=== PATIENT | male | born 1935 | race Caucasian/White ===

== ENCOUNTER 2018-09-17 15:16 | Observation (INO) | payer MEDICARE ==
[~2018-09-17] VITALS: Ht 182.9 cm; Wt 82.2 kg
[~2018-09-17 15:16] MED LIST: CARVEDILOL3.125 MG PO; LOVASTATIN10 MG PO; PLAVIX75 MG PO
[2018-09-17 17:11] LABS: BASOPHILS % 0.3 % (0.0-1.0); EOSINOPHILS # (AUTO) 0.7 (0.0-0.4); EOSINOPHILS % 7.5 % (0.0-6.0); HEMATOCRIT 40.5 % (38.2-49.6); HEMOGLOBIN 13.4 g/dL (14.0-18.0); LYMPHOCYTES # (AUTO) 2.7 (1.0-3.2); LYMPHOCYTES % 30.7 % (18.0-39.1); MEAN CORPUSCULAR HEMOGLOBIN 31.5 pg (28-32); MEAN CORPUSCULAR HGB CONC 33.1 g/dL (31-35); MEAN CORPUSCULAR VOLUME 95.1 fL (81-99); MONOCYTES # (AUTO) 0.9 (0.2-0.8); MONOCYTES % 10.2 % (4.4-11.3); NEUTROPHILS # (AUTO) 4.5 (2.1-6.9); NEUTROPHILS % 50.6 % (38.7-80.0); PLATELET COUNT 207 x10e3/uL (140-360); RED BLOOD COUNT 4.26 x10e6/uL (4.3-5.7); RED CELL DISTRIBUTION WIDTH 13.9 % (11.7-14.4)
[2018-09-17 17:23] LABS: ALBUMIN 3.8 g/dL (3.5-5.0); ALBUMIN/GLOBULIN RATIO 1.1 (0.8-2.0); ANION GAP 13.8 mmol/L (8-16); CALCIUM 9.9 mg/dL (8.4-10.2); CREATININE, SERUM 2.02 mg/dL (0.72-1.25); POTASSIUM 5.8 mmol/L (3.5-5.1)
[2018-09-17 17:40] LABS: CREATINE KINASE MB 2.1 ng/mL (0-5.0)
[2018-09-17] MEDS ORDERED: DEXTROSE 50% SYRINGE 50 ML IV STA ×2 (17:41→23:15)
[2018-09-17] MEDS ORDERED: INSULIN REGULAR, HUMAN 100 UNIT/1 ML 3ML VIAL IV ONE (17:45)
[2018-09-17] MEDS ORDERED: SOD POLYSTYRENE SULFONATE SUSP 15 GM/60 ML BTL PO ONE (17:45)
[2018-09-17] MEDS ORDERED: CALCIUM GLUCONATE 10% INJ 4.65 MEQ in SODIUM CHLORIDE 0.9% 50ML 50 ML IV ONE (17:45)
[2018-09-17] MEDS ORDERED: SODIUM CHLORIDE 0.9% 1000ML 1,000 ML IV STA (20:04)
[2018-09-17] MEDS ORDERED: ONDANSETRON HCL INJ 2MG/ML 2ML 2 MG/ML VIAL IV ONE (20:04)
[2018-09-17] MEDS ORDERED: KETOROLAC TROMETHAMINE 30 MG/ML VIAL IV ONE (20:04)
[2018-09-17 20:31] LABS: ALBUMIN 3.6 g/dL (3.5-5.0); ALBUMIN/GLOBULIN RATIO 1.1 (0.8-2.0); CALCIUM 10.2 mg/dL (8.4-10.2); CREATININE, SERUM 1.95 mg/dL (0.72-1.25)
[2018-09-17] MEDS ORDERED: ONDANSETRON HCL INJ 2MG/ML 2ML 2 MG/ML VIAL IV PRN (21:00)
[2018-09-17] MEDS ORDERED: DEXTROSE 5%/0.45% SOD CHL 1,000 ML IV ONE ×3 (21:00→23:45)
[2018-09-17 22:46] VITALS: BP 132/74
[2018-09-17] MEDS ORDERED: LOVASTATIN40 MG (23:07)
[2018-09-17] MEDS ORDERED: LISINOPRIL40 MG (23:07)
[2018-09-18] VITALS (8 sets, daily range): BP systolic 112–148; BP diastolic 68–86
--- NOTE | 2018-09-18 01:49 | NUR ---
PT IS TRANSFERRED FROM ER.PT IS AOX3 .RESPIRATIONS ARE EVEN AND UNLABORED .SKIN WAEM AND DRY PT HAS IV AT RT AC NS D51/NS AT 75 ML/HR IS RUNNING .DENIES PAIN FAMILY WAS AT BEDSIDE .TELE #9 SHOWS AR .CALL LIGHT WITH IN REACH .CONTINUE TO MONITOR
[2018-09-18 05:59] LABS: BASOPHILS % 0.2 % (0.0-1.0); EOSINOPHILS % 5.6 % (0.0-6.0); HEMATOCRIT 37.8 % (38.2-49.6); HEMOGLOBIN 12.8 g/dL (14.0-18.0); LYMPHOCYTES % 17.7 % (18.0-39.1); MEAN CORPUSCULAR HEMOGLOBIN 31.4 pg (28-32); MEAN CORPUSCULAR HGB CONC 33.9 g/dL (31-35); MEAN CORPUSCULAR VOLUME 92.6 fL (81-99); NEUTROPHILS # (AUTO) 5.6 (2.1-6.9); NEUTROPHILS % 63.9 % (38.7-80.0); PLATELET COUNT 171 x10e3/uL (140-360); RED BLOOD COUNT 4.08 x10e6/uL (4.3-5.7); RED CELL DISTRIBUTION WIDTH 13.9 % (11.7-14.4)
[2018-09-18 06:00] LABS: EOSINOPHILS # (AUTO) 0.5 (0.0-0.4); LYMPHOCYTES # (AUTO) 1.6 (1.0-3.2); MONOCYTES # (AUTO) 1.1 (0.2-0.8)
[2018-09-18 06:24] LABS: ALBUMIN 3.2 g/dL (3.5-5.0); ALBUMIN/GLOBULIN RATIO 1.1 (0.8-2.0); ANION GAP 11.4 mmol/L (8-16); CREATININE, SERUM 1.68 mg/dL (0.72-1.25); POTASSIUM 5.4 mmol/L (3.5-5.1)
--- NOTE | 2018-09-18 06:40 | NUR ---
PT RESTING DENIES PAIN NO ACUTE DISTRESS NOTED .CALL LIGHT WITH IN REACH .CONTINUE TO MONITOR
--- NOTE | 2018-09-18 07:11 | NUR ---
REPORT GIVEN TO THE ON COMING NURSE
[2018-09-18] MEDS ORDERED: SOD POLYSTYRENE SULFONATE SUSP 15 GM/60 ML BTL PO NR (08:30)
[2018-09-18] MEDS: OXYMETAZOLINE HCL 0.05% NAS 1 SPRAY BTL SCH ×2 (09:14→22:00)
[2018-09-18] MEDS ORDERED: COQ-10100 MG PO (09:57)
[2018-09-18] MEDS ORDERED: LOVASTATIN40 MG PO (09:57)
[2018-09-18] MEDS ORDERED: MELOXICAM7.5 MG PO (09:57)
[2018-09-18] MEDS ORDERED: HYDRALAZINE HCL 20 MG/ML VIAL IV PRN (10:00)
[2018-09-18] MEDS ORDERED: ACETAMINOPHEN 325 MG TAB PO PRN (10:00)
[2018-09-18] MEDS: CARVEDILOL 3.125 MG TAB PO SCH ×2 (10:31→17:38)
[2018-09-18] MEDS: CLOPIDOGREL BISULFATE 75 MG TAB PO SCH (10:31)
[2018-09-18] MEDS: AMLODIPINE BESYLATE 10 MG TAB PO SCH (10:31)
[2018-09-18] MEDS: SODIUM CHLORIDE 0.9% 1000ML 1,000 ML IV SCH ×2 (10:31→21:07)
--- NOTE | 2018-09-18 13:26 | NUR ---
IMM LETTER WAS EXPLAINED TO PT AND DTR. VERBALIZED UNDERSTANDING. IMM LETTER WAS SIGNED. COPY TO CHART AND COPY TO PT.
[2018-09-18] MEDS: FAMOTIDINE 20 MG TAB PO SCH (17:38)
[2018-09-18] MEDS ORDERED: SIMVASTATIN 20 MG TAB PO SCH (21:00)
[2018-09-18] MEDS: SIMVASTATIN 40 MG TAB PO SCH (22:00)
[2018-09-19] VITALS (7 sets, daily range): BP systolic 109–151; BP diastolic 64–69
--- NOTE | 2018-09-19 03:18 | NUR ---
Received patient from day nurse, patient is alert and oriented, introduced self to patient and patient educated on the importance of calling for help, patient verbalized understanding. safety and fall precautions maintained as per hospital protocol: bed in lowest position and locked, needed items beside bed and call helton placed close to patient, patient instructed to use it to call nurses for any assistance needed, patient verbalized understanding.
[2018-09-19 04:37] LABS: BASOPHILS % 0.3 % (0.0-1.0); EOSINOPHILS # (AUTO) 0.5 (0.0-0.4); EOSINOPHILS % 4.8 % (0.0-6.0); HEMATOCRIT 35.1 % (38.2-49.6); HEMOGLOBIN 11.8 g/dL (14.0-18.0); LYMPHOCYTES # (AUTO) 1.9 (1.0-3.2); LYMPHOCYTES % 19.4 % (18.0-39.1); MEAN CORPUSCULAR HEMOGLOBIN 31.7 pg (28-32); MEAN CORPUSCULAR HGB CONC 33.6 g/dL (31-35); MEAN CORPUSCULAR VOLUME 94.4 fL (81-99); MONOCYTES % 10.8 % (4.4-11.3); NEUTROPHILS # (AUTO) 6.2 (2.1-6.9); NEUTROPHILS % 64.3 % (38.7-80.0); PLATELET COUNT 152 x10e3/uL (140-360); RED BLOOD COUNT 3.72 x10e6/uL (4.3-5.7)
[2018-09-19 04:48] LABS: ANION GAP 12.5 mmol/L (8-16); CALCIUM 8.4 mg/dL (8.4-10.2); CREATININE, SERUM 1.42 mg/dL (0.72-1.25); MAGNESIUM 1.8 MG/DL (1.3-2.1); POTASSIUM 5.5 mmol/L (3.5-5.1)
[2018-09-19] MEDS: SODIUM CHLORIDE 0.9% 1000ML 1,000 ML IV SCH (05:16)
--- NOTE | 2018-09-19 07:06 | NUR ---
Patient endorsed to next shift for continuity of care.
[2018-09-19] MEDS: UBIDECARENONE 50 MG PO SCH (09:00)
[2018-09-19] MEDS: MELOXICAM 7.5 MG TAB PO SCH (09:03)
[2018-09-19] MEDS: CARVEDILOL 3.125 MG TAB PO SCH ×2 (09:03→17:21)
[2018-09-19] MEDS: FAMOTIDINE 20 MG TAB PO SCH ×2 (09:03→17:19)
[2018-09-19] MEDS: OXYMETAZOLINE HCL 0.05% NAS 1 SPRAY BTL SCH ×2 (09:03→20:48)
[2018-09-19] MEDS: AMLODIPINE BESYLATE 10 MG TAB PO SCH (09:04)
[2018-09-19] MEDS: CLOPIDOGREL BISULFATE 75 MG TAB PO SCH (09:04)
[2018-09-19] MEDS ORDERED: NORVASC10 MG PO (09:07)
[2018-09-19] MEDS: DEXTROSE 5%/0.9% SOD CHL 1,000 ML IV SCH ×2 (10:20→20:48)
[2018-09-19] MEDS ORDERED: LACTULOSE SYRUP 20 GM/30 ML UDC PO ONE (10:30)
--- NOTE | 2018-09-19 19:05 | NUR ---
Bedside rounds completed with morning nurse. Pt alert and orient to name. Lying in bed HOB 30 degrees. Denies pain at this time. Call helton within reach. Bed low and locked. Will continue to monitor.
[2018-09-19] MEDS: SIMVASTATIN 40 MG TAB PO SCH (20:49)
[2018-09-20] VITALS: BP 136/76
[2018-09-20 03:48] LABS: ANION GAP 12.6 mmol/L (8-16); CALCIUM 8.3 mg/dL (8.4-10.2); CREATININE, SERUM 1.31 mg/dL (0.72-1.25); POTASSIUM 4.6 mmol/L (3.5-5.1)
[2018-09-20 04:00] VITALS: BP 130/63
[2018-09-20] MEDS: DEXTROSE 5%/0.9% SOD CHL 1,000 ML IV SCH (04:48)
[2018-09-20 07:51] VITALS: BP 124/63
[2018-09-20 07:52] VITALS: BP 124/63
[2018-09-20] MEDS: FAMOTIDINE 20 MG TAB PO SCH (08:44)
[2018-09-20] MEDS: OXYMETAZOLINE HCL 0.05% NAS 1 SPRAY BTL SCH (08:51)
[2018-09-20] MEDS: CARVEDILOL 3.125 MG TAB PO SCH (08:52)
[2018-09-20] MEDS: AMLODIPINE BESYLATE 10 MG TAB PO SCH (08:53)
[2018-09-20] MEDS: UBIDECARENONE 50 MG PO SCH (08:53)
[2018-09-20] MEDS: CLOPIDOGREL BISULFATE 75 MG TAB PO SCH (08:53)
[2018-09-20] MEDS: MELOXICAM 7.5 MG TAB PO SCH (08:53)
[2018-09-20 12:00] VITALS: BP 122/67
--- NOTE | 2018-09-20 13:15 | NUR ---
Pt discharged home at this time. Pt and family verbalized understanding of discharge instructions and follow up appt. Pt educated on low potassium diet.
--- NOTE | 2018-09-21 04:12 | Discharge Summary ---
ADMISSION DIAGNOSES: 1. Hyperkalemia. 2. Acute kidney injury on chronic kidney disease 3. 3. Hypertension. 4. Hyperlipidemia. 5. Arthritis. 6. Coronary artery disease with stents. DISCHARGE DIAGNOSES: 1. Hyperkalemia. 2. Acute kidney injury on chronic kidney disease 3. 3. Hypertension. 4. Hyperlipidemia. 5. Arthritis. 6. Coronary artery disease with stents. HISTORY: The patient has a history of hyperlipidemia, CAD with stents, VA, and arthritis. PAST SURGICAL HISTORY: Cardiac stents and tonsillectomy. FAMILY HISTORY: The patient's sister had cancer. The patient's father had a stroke. SOCIAL HISTORY: Noncontributory. HOSPITAL COURSE: 83-year-old male, admitted from Dr. Jeronimo Michael's office for potassium of 6.5. Upon arrival to the ER, his potassium was 5.8. He was given insulin and D50 combo with Kayexalate. Potassium came down to 5. The following morning, potassium went back up to 5.4. Per office records, his baseline GFR is about 43 or 44. On admission to the ER, his GFR was 32. He was started on IV fluids. The patient's lisinopril was discontinued on admission and Norvasc was added. All other home medicines stayed the same. The patient was kept until his potassium went down. On day of discharge, potassium was 4.6 and his GFR was 53. The patient will discharge home with new prescription for Norvasc. He will resume all other home medicines except lisinopril. The patient understands discharge instructions and agrees to plan. Vital signs stable, patient afebrile. Dictated by Therese Wells NP MD SYDNI Parmar/MODL /[id number]
== END 2018-09-20 13:15 | disposition home or self-care (01) ==
LOC: ER 15:16 → ERHOLD 21:02 → MED/SURG3 22:48
PROVIDERS: ADMIT Internal Medicine; ATTEND Internal Medicine
DX: E87.5 Hyperkalemia (principal); I12.9 Hypertensive chronic kidney disease with stage 1 through stage 4 chronic kidney disease, or unspecified chronic kidney disease; N18.3 Chronic kidney disease, stage 3 (moderate); N17.9 Acute kidney failure, unspecified; E78.5 Hyperlipidemia, unspecified; I25.2 Old myocardial infarction; Z95.5 Presence of coronary angioplasty implant and graft; M19.90 Unspecified osteoarthritis, unspecified site; Z80.9 Family history of malignant neoplasm, unspecified; Z82.3 Family history of stroke; I25.10 Atherosclerotic heart disease of native coronary artery without angina pectoris
CPT/HCPCS: 36415 ×4; 80048 ×2; 80053 ×2; 82550; 82553; 83735; 83880; 84484; 85025 ×3; 93005; 99284; G0378 ×4; J0610; J1817; J1885; J2405; J7030 ×3; J7042 ×2; J7799

== ENCOUNTER 2018-10-02 11:01 | Emergency (ER) | payer MEDICARE ==
[~2018-10-02] VITALS: Ht 182.9 cm; Wt 82.1 kg
[~2018-10-02 11:01] MED LIST changes: +COQ-10100 MG PO; +LISINOPRIL40 MG; +LOVASTATIN40 MG; +LOVASTATIN40 MG PO; +MELOXICAM7.5 MG PO; +NORVASC10 MG PO
[2018-10-02] MEDS ORDERED: HYDRALAZINE HCL25 MG PO (11:20)
[2018-10-02 11:56] LABS: BASOPHILS % 0.2 % (0.0-1.0); EOSINOPHILS # (AUTO) 0.4 (0.0-0.4); HEMATOCRIT 42.7 % (38.2-49.6); HEMOGLOBIN 14.7 g/dL (14.0-18.0); LYMPHOCYTES # (AUTO) 2.5 (1.0-3.2); LYMPHOCYTES % 26.4 % (18.0-39.1); MEAN CORPUSCULAR HEMOGLOBIN 31.5 pg (28-32); MEAN CORPUSCULAR HGB CONC 34.4 g/dL (31-35); MEAN CORPUSCULAR VOLUME 91.6 fL (81-99); MONOCYTES # (AUTO) 0.8 (0.2-0.8); MONOCYTES % 8.1 % (4.4-11.3); NEUTROPHILS # (AUTO) 5.7 (2.1-6.9); NEUTROPHILS % 60.7 % (38.7-80.0); PLATELET COUNT 274 x10e3/uL (140-360); RED BLOOD COUNT 4.66 x10e6/uL (4.3-5.7); RED CELL DISTRIBUTION WIDTH 13.9 % (11.7-14.4)
[2018-10-02 12:02] LABS: INR 0.96; PROTHROMBIN TIME 13.3 seconds (11.9-14.5)
[2018-10-02 12:03] LABS: PARTIAL THROMBOPLASTIN TIME 25.1 seconds (23.8-35.5)
--- NOTE | 2018-10-02 12:08 | Diagnostic Imaging Report ---
EXAMINATION: PA and lateral views of the chest. COMPARISON: None CLINICAL HISTORY: Congestion, cough DISCUSSION: Lungs are well-inflated and without focal consolidation, pleural effusion, or pneumothorax. Atherosclerotic calcification of the thoracic aorta with otherwise normal cardiomediastinal contour. No acute osseous abnormality. IMPRESSION: No acute cardiopulmonary abnormalities. Signed by: Dr. Clyde Tenorio M.D. on 10/02/2018 12:04 PM
[2018-10-02 12:12] LABS: ALBUMIN 4.2 g/dL (3.5-5.0); ALBUMIN/GLOBULIN RATIO 1.2 (0.8-2.0); ANION GAP 15.9 mmol/L (8-16); CALCIUM 10.2 mg/dL (8.4-10.2); CREATININE, SERUM 1.65 mg/dL (0.72-1.25); MAGNESIUM 2.8 MG/DL (1.3-2.1); POTASSIUM 4.9 mmol/L (3.5-5.1)
[2018-10-02 12:18] LABS: CREATINE KINASE MB 3.8 ng/mL (0-5.0)
[2018-10-02 12:55] LABS: BILIRUBIN,URINE NEGATIVE (NEGATIVE); CLARITY,URINE CLEAR (CLEAR); COLOR,URINE YELLOW (YELLOW); KETONES,URINE NEGATIVE (NEGATIVE); LEUKOCYTE ESTERASE ,URINE NEGATIVE (NEGATIVE); NITRITE,URINE NEGATIVE (NEGATIVE); PROTEIN,URINE DIPSTICK NEGATIVE (NEGATIVE); URINE UROBILINOGEN 0.2 mg/dL (0.2 - 1)
[2018-10-02 12:58] LABS: BACTERIA,URINE RARE /HPF; EPITHELIAL CELLS,URINE RARE /LPF
[2018-10-02] MEDS ORDERED: SODIUM CHLORIDE 0.9% 500ML 500 ML IV ONE (13:00)
[2018-10-02 13:33] VITALS: BP 159/78
== END 2018-10-02 13:37 | disposition home or self-care (01) ==
LOC: ER 11:01
DX: R09.81 Nasal congestion (principal); J30.2 Other seasonal allergic rhinitis; N28.9 Disorder of kidney and ureter, unspecified; I10 Essential (primary) hypertension; I25.10 Atherosclerotic heart disease of native coronary artery without angina pectoris; I25.2 Old myocardial infarction
CPT/HCPCS: 36415; 71046; 80053; 81001; 82550; 82553; 83735; 83880; 84484; 85025; 85610; 85730; 87086; 93005; 99284; J7040

== ENCOUNTER → 2018-10-12 | Day surgery (SDC) | payer MEDICARE ==
[~2018-10-12] MED LIST changes: +HYDRALAZINE HCL25 MG PO; +LIDOCAINE HCL 2% LOCAL INJ 5 ML SDV VIAL INJ ONE; +MIDAZOLAM HCL 2 MG/2 ML VIAL ONE; +PROPOFOL IV EMULSION 10 MG/ML 50 ML VIAL ONE
[2018-10-12 14:05] VITALS: BP 115/72
--- OUTSIDE RECORDS SUMMARY | 2018-10-13 09:56 | XMS REPORT ---
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 Allergies, Adverse Reactions, Alerts This patient has no known allergies or adverse reactions. Medications This patient has no known medications. Results Test Description Test Time Test Comments Text Results Atomic Results Result Comments CHEST 2 VIEWS 2018-10-02 12:03:00 [place] [id number] Patient Name: GINNA VENTURA JR MR #: [id number] : 1935 Age/Sex: 83/M Req #: [id number] Adm Physician: Ordered by: WINDY CASTELLON MD Report #: [id number] Location: ER Room/Bed: Procedure: [id number] DX/CHEST 2 VIEWS Exam Date: 10/02/18 Exam Time: 1139 REPORT STATUS: Signed EXAMINATION: PA and lateral views of the chest. COM PARISON: None CLINICAL HISTORY: Congestion, cough DISCUSSION: Lungs are well-inflated and without focal consolidation, pleural effusion, or pneumothorax. Atherosclerotic calcification of the thoracic aorta with otherwise normal cardiomediastinal contour. No acute osseous abnormality. IMPRESSION: No acute cardiopulmonary abnormalities. Signed by: Dr. Trudy Crawford M.D. on 10/02/2018 12:04 PM Dictated By: TRUDY CRAWFORD MD 03 Transcribed By: ELENA on 10/02/181203 COPY TO: WINDY CASTELLON MD
== END | disposition home or self-care (01) ==
LOC: OR 12:00
PROVIDERS: ATTEND Internal Medicine Gastroenterology
DX: K62.5 Hemorrhage of anus and rectum (principal); D12.0 Benign neoplasm of cecum; D12.2 Benign neoplasm of ascending colon; D12.4 Benign neoplasm of descending colon; K62.1 Rectal polyp; K57.30 Diverticulosis of large intestine without perforation or abscess without bleeding; I25.10 Atherosclerotic heart disease of native coronary artery without angina pectoris; I10 Essential (primary) hypertension; F41.9 Anxiety disorder, unspecified; Z79.02 Long term (current) use of antithrombotics/antiplatelets; Z95.5 Presence of coronary angioplasty implant and graft
CPT/HCPCS: 45380; 45384; 45385; 88305; J2001; J2250; J2704; 45378

== ENCOUNTER → 2018-12-15 | Outpatient (CLI) | payer MEDICARE ==
[~2018-12-15] MED LIST changes: -LIDOCAINE HCL 2% LOCAL INJ 5 ML SDV VIAL INJ ONE; -MIDAZOLAM HCL 2 MG/2 ML VIAL ONE; -PROPOFOL IV EMULSION 10 MG/ML 50 ML VIAL ONE
--- NOTE | 2018-12-15 14:09 | Diagnostic Imaging Report ---
Exam: Right hip series, 2 views. History: Right hip pain Comparison: None Findings: AP and frog-leg radiographs of the right hip demonstrate no acute fracture or dislocation. Mild degenerative changes with joint space narrowing and small osteophyte formation. Impression: No acute osseous injury. Mild right hip degenerative changes. Signed by: Deb Oconnor MD on 12/15/2018 2:06 PM
== END ==
LOC: RAD 12:53
PROVIDERS: ATTEND Family Medicine
DX: M25.551 Pain in right hip (principal)